=== PATIENT | male | born 1990 | race Caucasian/White ===

== ENCOUNTER → 2020-10-31 08:12 | Outpatient (CLI) | payer BC, SELFPAY ==
--- NOTE | ~2020-10-31 | US_ITS ---
US thyroid INDICATION: Colloid cystic nodule TECHNIQUE: Real-time sonographic images of the thyroid gland were obtained. COMPARISON: No prior studies for comparison. FINDINGS: The right thyroid lobe measures 6 x 1.8 x 1.8 cm. The left thyroid lobe measures 6.1 x 1.4 x 1.8 cm. In the left lobe there is a 4 mm cyst in containing a focal calcification, TR 1, benign. N o other discrete masses. Normal Doppler signal. IMPRESSION: 1. Benign 4 mm cyst left thyroid lobe. Otherwise, unremarkable thyroid ultrasound. Reviewed, dictated and finalized at location A. TESTER IMPRESSION: 1. Benign 4 mm cyst left thyroid lobe. Otherwise, unremarkable thyroid ultraso und.
== END ==
PROVIDERS: PCP Emergency Medicine; Visit Provider Emergency Medicine
DX: E04.1 Nontoxic single thyroid nodule (principal)
CPT/HCPCS: 76536

== ENCOUNTER 2020-12-31 19:07 | Emergency (ER) | payer BC, SELFPAY ==
[2020-12-31 19:45] VITALS: BP 116/69; PULSE 61; RESP 16; TEMP 36.1; O2SAT 100
== END 2020-12-31 20:10 | disposition left against medical advice (07) ==
LOC: ANHED 20:08
PROVIDERS: PCP Emergency Medicine
DX: R55 Syncope and collapse (principal)
CPT/HCPCS: 99199

== ENCOUNTER 2024-01-29 14:44 | Outpatient (CLI) | payer BC, SELFPAY ==
--- NOTE | ~2024-01-29 | CT_ITS ---
EXAMINATION: CT abdomen pelvis wo con DATE: 01/29/2024 14:56 INDICATION: Lower abdominal pain TECHNIQUE: Computed tomography (CT) of the abdomen and pelvis was performed without intravenous contr ast. Automated exposure control and iterative reconstruction technique were employed. Exam dose: 363 .51 mGy-cm total exam DLP. COMPARISON: None. FINDINGS: Inflation. The lung bases are clear. Calcified right lower lobe pulmonary granuloma. Normal heart size. No pericardial or pleural effusion. The liver, gallbladder, bile ducts, spleen, pancreas, pancreatic duct, adrenal glands and kidneys kamran ear unremarkable on this limited noncontrast examination. Normal caliber of the abdominal aorta. No intraperitoneal or retroperitoneal or pelvic mass lesion or adenopathy or ascites. The urinary bladder and prostate gland are unremarkable. Normal appendix. No bowel obstruction, bowel wall thickening, pneumatosis or intraperitoneal free air . There is degenerative spurring of the lower thoracic spine. No suspicious osteolytic or osteoblastic lesions. IMPRESSION: No significant abnormality of the abdomen or pelvis Reviewed, dictated and finalized at [facility]. Reviewed, dictated and finalized at location B.
== END 2024-01-29 14:45 ==
LOC: MICIMG 14:45
PROVIDERS: PCP Emergency Medicine; Visit Provider Emergency Medicine
DX: R10.30 Lower abdominal pain, unspecified (principal)
CPT/HCPCS: 74176